=== PATIENT | female | born 1960 | race Caucasian/White ===

== ENCOUNTER 2016-11-09 09:31 | Observation (INO) | payer MEDICAID, OTHER ==
[2016-11-09] MEDS ORDERED: diPHENhydraMINE PO* 25 MG ONE (10:53)
[2016-11-09] MEDS ORDERED: Diazepam TAB(*) 5 MG ONE (10:53)
[2016-11-09] MEDS ORDERED: Heparin 2 UNITS/ML IVPREMIX* 1,000 ML IV ONE (12:08)
[2016-11-09] MEDS ORDERED: VERAPAMIL 2.5 MG/ML 4 ML VIAL ONE (12:08)
[2016-11-09] MEDS ORDERED: nitroGLYCERIN DRIP* 250 ML ONE (12:08)
[2016-11-09] MEDS ORDERED: Midazolam* 1 MG/ML 5 ML VIAL (5 MG) ONE (12:08)
[2016-11-09] MEDS ORDERED: fentaNYL* 50 MCG/ML 2 ML VIAL (100 MCG VIAL) ONE (12:08)
[2016-11-09] MEDS ORDERED: Lidocaine 1% INJ* 10 MG/ML 30 ML SDV ONE (12:08)
[2016-11-09] MEDS ORDERED: Heparin(*) 1000 UNIT/ML 10 ML VIAL CATH LAB IV ONE (12:08)
[2016-11-09] MEDS ORDERED: Iohexol 350 (CONTRAST) 200 ML MDV IV ONE (12:09)
[2016-11-09] MEDS ORDERED: Ticagrelor* 90 MG TAB PO ONE (13:12)
[2016-11-09] MEDS ORDERED: Nitroglycerin TAB 0.4 MG* 0.4 MG TAB SL PRN (13:38)
[2016-11-09] MEDS ORDERED: Acetaminophen TAB* 325 MG PO PRN (13:40)
[2016-11-09] MEDS ORDERED: UREA TOPICAL PRN (13:44)
[2016-11-09] MEDS ORDERED: Adenosine* 3 MG/ML VIAL ONE (13:45)
[2016-11-09] MEDS ORDERED: NS 0.9% 1000 ML* 1,000 ML IV SCH (13:45)
[2016-11-09] MEDS ORDERED: Dextrose 50% Syringe 50 ML* 25 GM/50 ML SYRINGE IV PUSH PRN (13:54)
[2016-11-09] MEDS ORDERED: INSULIN LISPRO SUBCUT SCH (14:00)
[2016-11-09] MEDS: Gabapentin CAP(*) 300 MG PO SCH ×2 (15:51→22:29)
[2016-11-09] MEDS: Insulin LISPRO* 1 UNITS UNIT SUBCUT SCH ×3 (15:52→22:33)
[2016-11-09] MEDS ORDERED: amLODIPine TAB* 5 MG PO ONE (17:30)
[2016-11-09] MEDS: Lisinopril TAB* 5 MG PO SCH (17:35)
[2016-11-09] MEDS ORDERED: Insulin GLARGINE(*) 1 UNITS UNIT SUBCUT SCH (22:00)
[2016-11-09] MEDS ORDERED: amLODIPine TAB* 5 MG ONE (22:24)
[2016-11-09] MEDS: Ticagrelor* 90 MG TAB PO SCH (22:29)
--- NOTE | 2016-11-10 01:37 | CATH ---
CC: Jorden Adame PA-C; Dr. Vu * STENT REPORT: DATE OF PROCEDURE: 11/09/16 - ROOM #ICU-02 PRIMARY CARE PHYSICIAN: Jorden Adame PA-C COLLAR SETTER OVERLOCK: Dr. Vu. PROCEDURES: Right radial artery access, bilateral selective coronary cineangiography, left heart catheterization, FFR evaluation of LAD, stent placement of LAD, 3.5 x 12 Synergy drug-eluting stent. HISTORY: A 56-year-old morbidly obese diabetic with recent onset of functional class 2 exertional dyspnea on beta-blockade. Stress imaging was intermediate risk with an LAD distribution defect. She was referred for coronary angiography. PROCEDURE ACCESS: Right radial artery sheath 6F slender with ultrasound assistance. MEDICATIONS: 1. Subcutaneous lidocaine. 2. IV Versed. 3. IV fentanyl. 4. Heparin 3000 units. 5. Nitroglycerin 300 mcg IA. 6. Verapamil 3 mg IA. 7. IC nitroglycerin 200 mcg. 8. IC adenosine 100 x2 for FFR. 9. Brilinta 180 mg p.o. loading dose. 10. Heparin 4000 units IV. DIAGNOSTIC CATHETERS: 5F TIG4, 6FL 3.5. LV pressure was measured with the diagnostic catheter. GUIDING CATHETER: LAD 6F Ikari left 3.75 wire 14 BMW. FFR system COMET pressure wire. HEMODYNAMICS: Initial AO 156/81. LV 117/20, no aortic valve gradient on pullback. FFR across the mid LAD after 100 mcg of IC nitroglycerin, and with 100 mcg IC adenosine bolus 0.79, 0.78. ANGIOGRAPHY: RCA: The RCA is large, dominant with a moderate PDA followed by 2 very small posterolaterals and then a large bifurcated posterolateral. The RCA has no significant stenosis. There is scattered mild luminal irregularity. Left main: The left main is large, long, has no stenosis. LAD: The LAD is large, extends past the apex and supplies the inferoapical segment, the LAD provides a large first diagonal, smaller second and third diagonals after which the LAD has an eccentric 50% stenosis with moderate calcification. Distal LAD has no significant stenosis. FFR across the stenosis was significant. Circumflex: The circumflex is not dominant, with a [id number] first marginal, ends with a moderate posterolateral, the circumflex has no significant stenosis. After drug-eluting stent placement and post dilatation of mid LAD, there is no residual stenosis, there is a step-up and step-down, distal flow is DEMETRIUS 3. There are no loss of branches or dissection. CONCLUSION: 1. Single-vessel disease LAD with intermediate stenosis, with positive FFR. Excellent angiographic result with drug-eluting stent placement. 2. Normal LV systolic function by noninvasive testing. 3. Elevated LVEDP, otherwise normal left-sided hemodynamics. 4. Successful right radial artery access. [id number]/[facility] #: [id number] [facility]ENTERDylan
[2016-11-10 07:14] LABS: Calcium 8.7 mg/dL (8.6-10.3); EGFR African American 139.3 (>60); EGFR Non-African American 108.3 (>60)
[2016-11-10] MEDS ORDERED: Metoprolol Succinate XL TAB* 25 MG PO SCH (09:00)
[2016-11-10] MEDS ORDERED: Atorvastatin* 40 MG TAB PO SCH (09:00)
[2016-11-10] MEDS: Insulin LISPRO* 1 UNITS UNIT SUBCUT SCH ×4 (09:13→13:34)
[2016-11-10] MEDS: Gabapentin CAP(*) 300 MG PO SCH ×2 (09:21→13:34)
[2016-11-10] MEDS: Lisinopril TAB* 5 MG PO SCH (09:23)
[2016-11-10] MEDS: Ticagrelor* 90 MG TAB PO SCH (09:23)
[2016-11-10 13:36] VITALS: BP 160/71
--- NOTE | 2016-11-10 23:57 | DS ---
CC: Jorden Adame PA-C; Dr. Vu * DISCHARGE SUMMARY: DATE OF ADMISSION: 11/09/16 DATE OF DISCHARGE: 11/10/16 PRIMARY CARE PHYSICIAN: Jorden Adame PA-C BUSINESS SERVICES OFFICER: Dr. Vu. DISCHARGE DIAGNOSES: 1. Angina pectoris. 2. Abnormal stress test. 3. Morbid obesity. 4. Diabetes, type 2. 5. Dyslipidemia. 6. Psoriasis. PROCEDURES: Cardiac cath, right radial access, stent placement, LAD, 3.5 x 12 Synergy drug-eluting stent. DISCHARGE MEDICATIONS: Unchanged: 1. Lipitor 40 mg daily. 2. Neurontin 300 mg t.i.d. 3. Insulin as before. 4. Toprol-XL 50 mg daily. 5. Nitroglycerin 0.4 sublingual p.r.n. New medications: 1. Brilinta 90 mg b.i.d. 2. Lisinopril 5 mg daily. WOUND CARE: Shower only 3 days. ACTIVITY: No strenuous exertion for 2 days. FOLLOWUP: Follow up with Mr. Adame and Dr. Vu as scheduled. HISTORY: See H and P. LABORATORY DATA/DIAGNOSTIC STUDIES: Post PCI, BMP is stable with a creatinine of 0.58. Blood sugar 194. EKG post revascularization, stable, within normal limits. HOSPITAL COURSE: She underwent outpatient catheterization for evaluation of functional class 2 to 3 exertional dyspnea, intermediate risk, anterior wall ischemia on stress imaging. Comorbidities include morbid obesity, hyperlipidemia, diabetes, hypertension. Cardiac cath via the radial approach was uncomplicated, demonstrated moderate LAD stenosis, which was abnormal by FFR , was therefore stented with 3.5 x 12 Synergy drug-eluting stent without residual. Postprocedure, there were no complications. Her labs remained stable , EKG remained stable, she has not had recurrence of chest pain. Lisinopril was added because of uncontrolled hypertension. She will continue with outpatient followup. On the day of discharge, vitals are stable, exam is unremarkable, wili Larson [id number]/[facility] #: [id number] [facility]
== END 2016-11-10 17:00 | disposition home or self-care (01) ==
LOC: CHICATH 09:31 → ICU 13:55 → INTOOBSV 13:55
PROVIDERS: ADMIT Internal Medicine Cardiovascular Disease; ATTEND Internal Medicine Cardiovascular Disease
DX: I25.119 Atherosclerotic heart disease of native coronary artery with unspecified angina pectoris (principal); R94.39 Abnormal result of other cardiovascular function study; R06.02 Shortness of breath; E11.9 Type 2 diabetes mellitus without complications; Z79.4 Long term (current) use of insulin; E78.5 Hyperlipidemia, unspecified; E66.01 Morbid (severe) obesity due to excess calories; L40.9 Psoriasis, unspecified; Z87.891 Personal history of nicotine dependence; Z79.899 Other long term (current) drug therapy
CPT/HCPCS: 36415; 80048; 82553; 87641; 93005; 93458; 99156; 99157; A9270-GY; C1725; C1769; C1876; C1887; C9600-LD; G0378; J0153; J1644; J2001; J2250; J3010

== ENCOUNTER 2023-03-03 18:12 | Inpatient (IN) ==
[2023-03-03 20:14] LABS: Hematocrit 41.5 % (35-45); Hemoglobin 12.7 g/dL (11.5-14.3); Mean Corpuscular Hemoglobin 23.6 pg (27-33); Mean Corpuscular Hgb Conc 30.5 g/dL (31-36); Mean Corpuscular Volume 77.3 fL (80-97); Mean Platelet Volume 7.3 fL (7.5-11.2); Platelet Count 280 10^3/uL (150-450); Red Blood Count 5.37 10^6/uL (3.63-4.92); Red Cell Distribution Width 19.1 % (12-17); White Blood Count 10.5 10^3/uL (3.8-11.8)
[2023-03-03 20:37] LABS: ALT 8 U/L (7-52); Albumin 3.7 g/dL (3.2-5.2); Albumin/Globulin Ratio 1.2 (1-3); Alkaline Phosphatase 103 U/L (35-149); Anion Gap 9 mmol/L (2-16); Blood Urea Nitrogen 10 mg/dL (6-24); CO2 Carbon Dioxide 33 mmol/L (22-32); Calcium 8.6 mg/dL (8.6-10.3); Chloride 98 mmol/L (101-111); Creatinine, Serum 0.58 mg/dL (0.51-0.95); Globulin 3.2 g/dL (2-4); Glucose 195 mg/dL (70-100); Magnesium 1.7 mg/dL (1.9-2.7); Sodium 140 mmol/L (135-145); Total Bilirubin 0.6 mg/dL (0.2-1.0); Total Protein 6.9 g/dL (6.4-8.9); eGFR CKD-EPI 103.5 (>60)
[2023-03-03 20:40] LABS: High Sens Troponin Baseline 56 pg/mL (<15)
[2023-03-03 21:09] LABS: ABS Eosinophils 0.3 10^3/uL (0.0-0.5); ABS Monocytes 0.7 10^3/uL (0.0-0.9); ABS Neutrophils 7.4 10^3/uL (1.5-7.6); ABS Nucleated RBC 0.01 10^3/ul; Eosinophil % 2.8 %; Nucleated Red Blood Cells % 0.1 %/100WBC (0.0-0.8); RBC Morphology Normal (Normal)
[2023-03-03 22:15] LABS: Potassium Redraw 4.2 mmol/L (3.5-5.0)
[2023-03-03] MEDS: cefTRIAXone 1 gm/50 mL D5W 1 GM/50 ML BAG IV ONE (22:26)
[2023-03-03] MEDS ORDERED: Dextrose 50% Syringe 50 ml 25 GM/50 ML SYRINGE IV PUSH PRN (23:58)
[2023-03-04] MEDS: Furosemide 40 mg/4 ml IV VIAL IV SLOW PU ONE (00:56)
[2023-03-04] MEDS: Magnesium Sulfate 2 gm BAG 2 GM/50 ML BAG IVPB ONE (04:25)
[2023-03-04] MEDS: Magnesium Sulfate IV 1GM/100ML 1 GM/100 ML BAG IV ONE (05:55)
[2023-03-04 07:16] LABS: Calcium 8.6 mg/dL (8.6-10.3); Creatinine, Serum 0.61 mg/dL (0.51-0.95); Magnesium 2.5 mg/dL (1.9-2.7); Potassium 3.7 mmol/L (3.5-5.0); eGFR CKD-EPI 102.3 (>60)
[2023-03-04] MEDS: Insulin GLARGINE 100 un/ml 10 ml VIAL SUBCUT SCH (08:10)
[2023-03-04] MEDS: Enoxaparin 40 MG/0.4 ML SYR SUBCUT SCH (08:11)
[2023-03-04 10:22] LABS: C Reactive Protein 18.21 mg/L (<8.01)
[2023-03-04] MEDS: Furosemide 40 mg/4 ml IV VIAL IV SLOW PU SCH (10:57)
[2023-03-04] MEDS: Furosemide 40 mg/4 ml IV VIAL IV ONE (13:40)
[2023-03-04] MEDS ORDERED: cefTRIAXone 1 gm/50 mL D5W 1 GM/50 ML BAG IV SCH (22:00)
[2023-03-05 07:04] LABS: Calcium 8.8 mg/dL (8.6-10.3); Creatinine, Serum 0.53 mg/dL (0.51-0.95); Potassium 3.9 mmol/L (3.5-5.0); eGFR CKD-EPI 105.8 (>60)
[2023-03-05] MEDS ORDERED: Dextrose 50% Syringe 50 ml 25 GM/50 ML SYRINGE IV PUSH PRN (07:24)
[2023-03-05] MEDS: Insulin GLARGINE 100 un/ml 10 ml VIAL SUBCUT SCH (08:20)
[2023-03-05] MEDS: Furosemide 40 mg/4 ml IV VIAL IV SLOW PU ONE (10:51)
[2023-03-06 07:18] LABS: Calcium 9.1 mg/dL (8.6-10.3); Creatinine, Serum 0.53 mg/dL (0.51-0.95); Potassium 4.1 mmol/L (3.5-5.0); eGFR CKD-EPI 105.8 (>60)
[2023-03-06] MEDS: Furosemide 40 mg/4 ml IV VIAL IV ONE (09:36)
[2023-03-06] MEDS ORDERED: Sodium Chloride(INHALANT)0.9% 5 ML NEB.SOLN INH PRN (09:46)
[2023-03-06] MEDS: Polyethylene Glycol 3350 17 GM PACKET PO SCH (10:33)
[2023-03-06] MEDS: Furosemide 40 mg/4 ml IV VIAL IV SCH (16:57)
[2023-03-07] MEDS: Magnesium Hydroxide LIQ 30 ML UDC PO PRN (05:47)
[2023-03-07] MEDS: Saline NASAL SPRAY 0.65% BTL BOTH NARES PRN (09:48)
[2023-03-07] MEDS: Furosemide 20 mg/2 ml IV VIAL IV ONE (09:57)
[2023-03-07 10:44] LABS: Creatinine, Serum 0.61 mg/dL (0.51-0.95); Magnesium 1.8 mg/dL (1.9-2.7); Potassium 4.1 mmol/L (3.5-5.0); eGFR CKD-EPI 102.3 (>60)
[2023-03-07] MEDS: Furosemide 40 mg/4 ml IV VIAL IV SCH (17:09)
[2023-03-07] MEDS: Insulin GLARGINE 100 un/ml 10 ml VIAL SUBCUT SCH (21:51)
[2023-03-08 06:41] LABS: ABS Basophils 0.1 10^3/uL (0.0-0.1); ABS Eosinophils 0.3 10^3/uL (0.0-0.5); ABS Lymphocytes 1.8 10^3/uL (1.0-4.8); ABS Monocytes 0.6 10^3/uL (0.0-0.9); ABS Neutrophils 4.8 10^3/uL (1.5-7.6); Eosinophil % 4.2 %; Hematocrit 37.6 % (35-45); Hemoglobin 11.7 g/dL (11.5-14.3); Lymphocyte % 24.1 %; Mean Corpuscular Hemoglobin 23.6 pg (27-33); Mean Corpuscular Volume 76.2 fL (80-97); Mean Platelet Volume 7.3 fL (7.5-11.2); Nucleated Red Blood Cells % 0.1 %/100WBC (0.0-0.8); Platelet Count 273 10^3/uL (150-450); Red Blood Count 4.94 10^6/uL (3.63-4.92); Red Cell Distribution Width 18.9 % (12-17); White Blood Count 7.7 10^3/uL (3.8-11.8)
[2023-03-08 06:56] LABS: Calcium 9.4 mg/dL (8.6-10.3); Creatinine, Serum 0.49 mg/dL (0.51-0.95); Potassium 4.3 mmol/L (3.5-5.0); eGFR CKD-EPI 107.8 (>60)
[2023-03-08] MEDS: Bumetanide IV 0.25 MG/ML 4 ml VIAL (1 mg) IV SLOW PU SCH (10:23)
[2023-03-08 16:23] LABS: Calcium 9.5 mg/dL (8.6-10.3); Creatinine, Serum 0.56 mg/dL (0.51-0.95); eGFR CKD-EPI 104.4 (>60)
[2023-03-09 07:01] LABS: ABS Basophils 0.1 10^3/uL (0.0-0.1); ABS Eosinophils 0.3 10^3/uL (0.0-0.5); ABS Lymphocytes 1.8 10^3/uL (1.0-4.8); ABS Monocytes 0.6 10^3/uL (0.0-0.9); ABS Neutrophils 4.5 10^3/uL (1.5-7.6); ABS Nucleated RBC 0.01 10^3/ul; Eosinophil % 4.2 %; Hematocrit 37.7 % (35-45); Hemoglobin 11.7 g/dL (11.5-14.3); Lymphocyte % 24.6 %; Mean Corpuscular Hemoglobin 23.5 pg (27-33); Mean Corpuscular Hgb Conc 30.9 g/dL (31-36); Mean Platelet Volume 7.4 fL (7.5-11.2); Nucleated Red Blood Cells % 0.1 %/100WBC (0.0-0.8); Platelet Count 256 10^3/uL (150-450); Red Blood Count 4.96 10^6/uL (3.63-4.92); White Blood Count 7.3 10^3/uL (3.8-11.8)
[2023-03-09 07:19] LABS: Calcium 9.2 mg/dL (8.6-10.3); Creatinine, Serum 0.51 mg/dL (0.51-0.95); Magnesium 1.9 mg/dL (1.9-2.7); eGFR CKD-EPI 106.8 (>60)
[2023-03-09] MEDS: Fluticasone NASAL SPRAY 50MCG 16 gm SPRAY BTL BOTH NARES SCH (14:47)
[2023-03-09] MEDS: Bumetanide IV 0.25 MG/ML 4 ml VIAL (1 mg) IV SLOW PU SCH (22:20)
[2023-03-10 08:22] LABS: ABS Basophils 0.1 10^3/uL (0.0-0.1); ABS Eosinophils 0.3 10^3/uL (0.0-0.5); ABS Lymphocytes 1.7 10^3/uL (1.0-4.8); ABS Monocytes 0.7 10^3/uL (0.0-0.9); ABS Neutrophils 5.5 10^3/uL (1.5-7.6); ABS Nucleated RBC 0.02 10^3/ul; Eosinophil % 3.6 %; Hemoglobin 12.2 g/dL (11.5-14.3); Lymphocyte % 20.4 %; Mean Corpuscular Hgb Conc 31.3 g/dL (31-36); Mean Corpuscular Volume 76.5 fL (80-97); Mean Platelet Volume 7.5 fL (7.5-11.2); Nucleated Red Blood Cells % 0.2 %/100WBC (0.0-0.8); Platelet Count 255 10^3/uL (150-450); Red Cell Distribution Width 19.6 % (12-17); White Blood Count 8.3 10^3/uL (3.8-11.8)
[2023-03-10 08:34] LABS: Calcium 9.3 mg/dL (8.6-10.3); Creatinine, Serum 0.64 mg/dL (0.51-0.95); Potassium 4.2 mmol/L (3.5-5.0); eGFR CKD-EPI 101.1 (>60)
[2023-03-11 06:27] LABS: ABS Basophils 0.1 10^3/uL (0.0-0.1); ABS Eosinophils 0.3 10^3/uL (0.0-0.5); ABS Lymphocytes 2.3 10^3/uL (1.0-4.8); ABS Monocytes 0.7 10^3/uL (0.0-0.9); ABS Neutrophils 4.9 10^3/uL (1.5-7.6); Eosinophil % 3.9 %; Hematocrit 38.2 % (35-45); Hemoglobin 11.9 g/dL (11.5-14.3); Lymphocyte % 27.4 %; Mean Corpuscular Hemoglobin 23.9 pg (27-33); Mean Corpuscular Hgb Conc 31.1 g/dL (31-36); Mean Corpuscular Volume 76.7 fL (80-97); Mean Platelet Volume 7.5 fL (7.5-11.2); Platelet Count 262 10^3/uL (150-450); Red Blood Count 4.98 10^6/uL (3.63-4.92); Red Cell Distribution Width 19.3 % (12-17); White Blood Count 8.2 10^3/uL (3.8-11.8)
[2023-03-11 06:42] LABS: Calcium 9.4 mg/dL (8.6-10.3); Creatinine, Serum 0.56 mg/dL (0.51-0.95); Potassium 3.9 mmol/L (3.5-5.0); eGFR CKD-EPI 104.4 (>60)
[2023-03-12 07:18] LABS: ABS Basophils 0.1 10^3/uL (0.0-0.1); ABS Eosinophils 0.3 10^3/uL (0.0-0.5); ABS Monocytes 0.6 10^3/uL (0.0-0.9); ABS Neutrophils 4.9 10^3/uL (1.5-7.6); ABS Nucleated RBC 0.01 10^3/ul; Eosinophil % 4.1 %; Hematocrit 38.4 % (35-45); Lymphocyte % 25.5 %; Mean Corpuscular Hemoglobin 23.8 pg (27-33); Mean Corpuscular Hgb Conc 31.1 g/dL (31-36); Mean Corpuscular Volume 76.5 fL (80-97); Mean Platelet Volume 7.6 fL (7.5-11.2); Nucleated Red Blood Cells % 0.1 %/100WBC (0.0-0.8); Platelet Count 267 10^3/uL (150-450); Red Blood Count 5.02 10^6/uL (3.63-4.92); Red Cell Distribution Width 19.7 % (12-17); White Blood Count 7.9 10^3/uL (3.8-11.8)
[2023-03-12 07:35] LABS: Calcium 9.4 mg/dL (8.6-10.3); Creatinine, Serum 0.53 mg/dL (0.51-0.95); Magnesium 2.1 mg/dL (1.9-2.7); Potassium 3.8 mmol/L (3.5-5.0); eGFR CKD-EPI 105.8 (>60)
[2023-03-12] MEDS: Bumetanide IV 0.25 MG/ML 4 ml VIAL (1 mg) IV SLOW PU ONE (11:12)
[2023-03-12] MEDS: Insulin GLARGINE 100 un/ml 10 ml VIAL SUBCUT ONE (16:38)
[2023-03-12] MEDS: Insulin GLARGINE 100 un/ml 10 ml VIAL SUBCUT SCH (21:31)
[2023-03-12] MEDS: Bumetanide IV 0.25 MG/ML 4 ml VIAL (1 mg) IV SLOW PU SCH (21:32)
[2023-03-13 07:35] LABS: Calcium 9.3 mg/dL (8.6-10.3); Creatinine, Serum 0.57 mg/dL (0.51-0.95); Potassium 3.7 mmol/L (3.5-5.0)
[2023-03-13] MEDS: Insulin GLARGINE 100 un/ml 10 ml VIAL SUBCUT SCH (20:14)
[2023-03-14 07:48] LABS: Calcium 9.7 mg/dL (8.6-10.3); Creatinine, Serum 0.73 mg/dL (0.51-0.95); Magnesium 2.1 mg/dL (1.9-2.7); Potassium 3.8 mmol/L (3.5-5.0); eGFR CKD-EPI 94.1 (>60)
[2023-03-14] MEDS: Empagliflozin 25 MG TAB PO SCH (09:25)
[2023-03-14] MEDS: Potassium Chlor 10 meq TAB PO ONE (09:28)
[2023-03-14] MEDS: Insulin GLARGINE 100 un/ml 10 ml VIAL SUBCUT SCH (21:29)
[2023-03-15 06:44] LABS: Calcium 9.6 mg/dL (8.6-10.3); Creatinine, Serum 0.74 mg/dL (0.51-0.95); Potassium 3.7 mmol/L (3.5-5.0); eGFR CKD-EPI 92.6 (>60)
[2023-03-15 14:10] VITALS: BP 126/78
== END 2023-03-15 16:40 | disposition home or self-care (01) | DRG 194 ==
LOC: ED 18:12 → EDHOLD 18:12 → SUATTDRO 22:03 → MED 22:50 → SUATTDRO 03-05 12:57
PROVIDERS: ADMIT Internal Medicine; ATTEND Internal Medicine

== ENCOUNTER 2024-02-10 02:22 | Observation (INO) ==
[2024-02-10 03:12] LABS: ABS Basophils 0.1 10^3/uL (0.0-0.1); ABS Eosinophils 0.1 10^3/uL (0.0-0.5); ABS Lymphocytes 2.3 10^3/uL (1.0-4.8); ABS Monocytes 0.8 10^3/uL (0.0-0.9); ABS Neutrophils 6.2 10^3/uL (1.5-7.6); ABS Nucleated RBC 0.01 10^3/ul; Eosinophil % 1.2 %; Hemoglobin 14.1 g/dL (11.5-14.3); Lymphocyte % 24.2 %; Mean Corpuscular Hemoglobin 30.7 pg (27-33); Mean Corpuscular Hgb Conc 34.4 g/dL (31-36); Mean Corpuscular Volume 89.1 fL (80-97); Mean Platelet Volume 7.7 fL (7.5-11.2); Nucleated Red Blood Cells % 0.1 %/100WBC (0.0-0.8); Platelet Count 253 10^3/uL (150-450); Red Cell Distribution Width 14.8 % (12-17); White Blood Count 9.4 10^3/uL (3.8-11.8)
[2024-02-10 03:51] LABS: Osmolality Serum 294 mOsm/kg (275-295)
[2024-02-10 03:52] LABS: Albumin 3.6 g/dL (3.5-5.7); Albumin/Globulin Ratio 1.2 (1-3); C Reactive Protein 24.07 mg/L (<8.01); Calcium 9.2 mg/dL (8.6-10.3); Creatinine, Serum 1.17 mg/dL (0.51-0.95); Globulin 3.1 g/dL (2-4); Potassium 4.4 mmol/L (3.5-5.0); Total Bilirubin 0.6 mg/dL (0.2-1.0); Total Protein 6.7 g/dL (6.4-8.9); eGFR CKD-EPI 53.1 (>60)
[2024-02-10] MEDS: Lactated Ringers 1000 ml BAG 1,000 ML IV ONE (04:10)
[2024-02-10] MEDS ORDERED: Ondansetron 4 mg VIAL 2 MG/ML 2 ml VIAL IV PRN (04:12)
[2024-02-10] MEDS ORDERED: Dextrose 50% Syringe 50 ml 25 GM/50 ML SYRINGE IV PUSH PRN (04:25)
[2024-02-10] MEDS ORDERED: Lactated Ringers 1000 ml BAG 1,000 ML IV SCH (05:00)
[2024-02-10] MEDS: Insulin GLARGINE 100 un/ml 10 ml VIAL SUBCUT ONE ×2 (05:57→12:52)
[2024-02-10] MEDS ORDERED: Magnesium Hydroxide LIQ 30 ML UDC PO PRN (05:58)
[2024-02-10] MEDS: Lactated Ringers 1000 ml BAG 1,000 ML IV SCH ×2 (06:24→07:16)
[2024-02-10 06:29] LABS: Activated Partial Thrombo Time 23.5 seconds (26.0-38.0); INR 0.98 (0.85-1.14)
[2024-02-10 07:00] LABS: ABS Basophils 0.1 10^3/uL (0.0-0.1); ABS Eosinophils 0.1 10^3/uL (0.0-0.5); ABS Lymphocytes 2.3 10^3/uL (1.0-4.8); ABS Monocytes 0.8 10^3/uL (0.0-0.9); ABS Neutrophils 5.6 10^3/uL (1.5-7.6); ABS Nucleated RBC 0.01 10^3/ul; Eosinophil % 1.3 %; Hematocrit 39.6 % (35-45); Hemoglobin 13.7 g/dL (11.5-14.3); Lymphocyte % 25.4 %; Mean Corpuscular Hemoglobin 30.7 pg (27-33); Mean Corpuscular Hgb Conc 34.7 g/dL (31-36); Mean Corpuscular Volume 88.3 fL (80-97); Mean Platelet Volume 7.8 fL (7.5-11.2); Nucleated Red Blood Cells % 0.1 %/100WBC (0.0-0.8); Platelet Count 240 10^3/uL (150-450); Red Blood Count 4.48 10^6/uL (3.63-4.92); Red Cell Distribution Width 15.1 % (12-17); White Blood Count 8.9 10^3/uL (3.8-11.8)
[2024-02-10] MEDS: Heparin 5000 UNITS/ML 1 mL VIAL SUBCUT SCH (07:15)
[2024-02-10 07:51] LABS: Calcium 8.9 mg/dL (8.6-10.3); Creatinine, Serum 0.99 mg/dL (0.51-0.95); Magnesium 1.9 mg/dL (1.9-2.7); Potassium 4.4 mmol/L (3.5-5.0); eGFR CKD-EPI 64.9 (>60)
[2024-02-10] MEDS ORDERED: Polyethylene Glycol 3350 17 GM PACKET PO PRN (09:00)
[2024-02-10] MEDS ORDERED: Insulin GLARGINE 100 un/ml 10 ml VIAL SUBCUT SCH (09:00)
[2024-02-10] MEDS: Magnesium Hydroxide LIQ 30 ML UDC PO SCH (09:54)
[2024-02-10] MEDS: Polyethylene Glycol 3350 17 GM PACKET PO SCH (09:54)
[2024-02-10 20:39] LABS: Urine Osmo 795 mOsm/kg (150-1150)
[2024-02-10 21:30] LABS: Glucose Confirmatory 417 mg/dL (70-100)
[2024-02-10] MEDS: Insulin GLARGINE 100 un/ml 10 ml VIAL SUBCUT SCH (22:46)
[2024-02-10] MEDS: Senna TAB 8.6 mg TAB PO SCH (22:47)
[2024-02-11 06:43] LABS: ABS Basophils 0.1 10^3/uL (0.0-0.1); ABS Eosinophils 0.2 10^3/uL (0.0-0.5); ABS Monocytes 0.6 10^3/uL (0.0-0.9); ABS Neutrophils 3.7 10^3/uL (1.5-7.6); ABS Nucleated RBC 0.01 10^3/ul; Eosinophil % 2.7 %; Hemoglobin 13.7 g/dL (11.5-14.3); Lymphocyte % 30.9 %; Mean Corpuscular Hemoglobin 29.8 pg (27-33); Mean Corpuscular Hgb Conc 34.1 g/dL (31-36); Mean Corpuscular Volume 87.3 fL (80-97); Mean Platelet Volume 7.7 fL (7.5-11.2); Nucleated Red Blood Cells % 0.1 %/100WBC (0.0-0.8); Platelet Count 233 10^3/uL (150-450); Red Blood Count 4.58 10^6/uL (3.63-4.92); Red Cell Distribution Width 14.8 % (12-17); White Blood Count 6.5 10^3/uL (3.8-11.8)
[2024-02-11 07:15] LABS: Creatinine, Serum 0.6 mg/dL (0.51-0.95); Potassium 4.5 mmol/L (3.5-5.0); eGFR CKD-EPI 102.1 (>60)
[2024-02-11] MEDS: Insulin GLARGINE 100 un/ml 10 ml VIAL SUBCUT SCH (08:20)
[2024-02-12 07:08] LABS: ABS Eosinophils 0.2 10^3/uL (0.0-0.5); ABS Monocytes 0.4 10^3/uL (0.0-0.9); ABS Neutrophils 2.7 10^3/uL (1.5-7.6); ABS Nucleated RBC 0.01 10^3/ul; Eosinophil % 3.3 %; Hematocrit 39.6 % (35-45); Hemoglobin 13.7 g/dL (11.5-14.3); Lymphocyte % 37.4 %; Mean Corpuscular Hemoglobin 30.7 pg (27-33); Mean Corpuscular Hgb Conc 34.5 g/dL (31-36); Mean Corpuscular Volume 88.9 fL (80-97); Nucleated Red Blood Cells % 0.2 %/100WBC (0.0-0.8); Platelet Count 213 10^3/uL (150-450); Red Blood Count 4.45 10^6/uL (3.63-4.92); Red Cell Distribution Width 15.2 % (12-17); White Blood Count 5.4 10^3/uL (3.8-11.8)
[2024-02-12 07:27] LABS: Calcium 8.9 mg/dL (8.6-10.3); Creatinine, Serum 0.64 mg/dL (0.51-0.95); Potassium 4.5 mmol/L (3.5-5.0); eGFR CKD-EPI 100.5 (>60)
[2024-02-12] MEDS: Nystatin TOP POWDER 15 GM BTL TOPICAL SCH (13:38)
[2024-02-12] MEDS: Insulin GLARGINE 100 un/ml 10 ml VIAL SUBCUT SCH (22:16)
[2024-02-13 07:32] LABS: Anion Gap 8 mmol/L (2-16); Blood Urea Nitrogen 18 mg/dL (6-24); CO2 Carbon Dioxide 23 mmol/L (22-32); Chloride 95 mmol/L (101-111); Creatinine, Serum 0.57 mg/dL (0.51-0.95); Glucose 295 mg/dL (70-100); Sodium 126 mmol/L (135-145); eGFR CKD-EPI 103.3 (>60)
[2024-02-14 06:40] LABS: Calcium 9.1 mg/dL (8.6-10.3); Creatinine, Serum 0.66 mg/dL (0.51-0.95); Potassium 4.7 mmol/L (3.5-5.0); eGFR CKD-EPI 99.7 (>60)
[2024-02-14] MEDS ORDERED: COVID VAC 24-25 (12+) (Moderna) Syringe 0.5 mL IM ONE (09:00)
[2024-02-14] MEDS: Influenza Vaccine *TRI* 2024-25* 0.5 ML SYRINGE IM ONE (09:30)
[2024-02-14] MEDS: Insulin GLARGINE 100 un/ml 10 ml VIAL SUBCUT ONE (12:39)
[2024-02-14] MEDS: Insulin GLARGINE 100 un/ml 10 ml VIAL SUBCUT SCH (21:05)
[2024-02-15 07:25] LABS: Calcium 9.3 mg/dL (8.6-10.3); Creatinine, Serum 0.59 mg/dL (0.51-0.95); Potassium 4.6 mmol/L (3.5-5.0); eGFR CKD-EPI 102.5 (>60)
[2024-02-15] MEDS: COVID VAC 24-25 (12+) (Moderna) Syringe 0.5 mL IM ONE (08:45)
[2024-02-15 09:24] VITALS: BP 120/75
== END 2024-02-15 11:02 ==
LOC: EDHOLD 02:22 → ED 02:22 → SUATTDRO 04:12 → MED 09:29
PROVIDERS: ADMIT Internal Medicine; ATTEND Internal Medicine